=== PATIENT | female | born 1995 | race Hispanic/Latino ===

== ENCOUNTER 2017-10-29 18:55 | Emergency (ER) | payer MEDICAID ==
[~2017-10-29 18:55] MED LIST: GLYB5TAB8 PO; PREN-18 PO
[2017-10-29 19:59] LABS: APPEARANCE,URINE Cloudy (CLEAR); BILIRUBIN,URINE Negative (NEGATIVE); COLOR,URINE Yellow (YELLOW); GLUCOSE, URINE (UA) Negative (NEGATIVE); KETONES,URINE 15 mg/dL (NEGATIVE); LEUKOCYTE ESTERASE ,URINE Small (NEGATIVE); NITRATE,URINE Positive (NEGATIVE); OCCULT BLOOD,URINE Negative (NEGATIVE); PROTEIN,URINE Negative (NEGATIVE)
[2017-10-29 20:04] LABS: BACTERIA,URINE Many /HPF (None Seen); RBC,URINE None Seen /HPF (0-1)
== END 2017-10-29 21:08 | disposition home or self-care (01) ==
LOC: EDH 18:55
DX: O23.41 Unspecified infection of urinary tract in pregnancy, first trimester (principal); M54.5 Low back pain; Z3A.10 10 weeks gestation of pregnancy
CPT/HCPCS: 76801; 81001

== ENCOUNTER 2017-12-30 22:26 | Observation (INO) | payer MEDICAID ==
[~2017-12-30] VITALS: Ht 149.9 cm; Wt 69.4 kg
[2017-12-30] MEDS ORDERED: SODIUM CHLORIDE 0.9% 1000ML 1,000 ML IV ONE (22:57)
[2017-12-30 23:01] LABS: BASOPHILS % (AUTO) 0.6 % (0.0-5.0); EOSINOPHILS % (AUTO) 0.1 % (0.0-8.0); HEMATOCRIT 36.8 % (36-48); LYMPHOCYTES % (AUTO) 11.9 % (21.0-51.0); MEAN CORPUSCULAR HEMOGLOBIN 30.5 pg (27.0-33.0); MEAN CORPUSCULAR HGB CONC 34.2 g/dL (32.0-36.0); MEAN CORPUSCULAR VOLUME 89.4 fL (80-100); NEUTROPHILS % (AUTO) 80.4 % (40.0-77.0); PLATELET COUNT (AUTO) 312 K/uL (130-400); RED BLOOD CELL COUNT(AUTO) 4.11 MIL/uL (4.00-5.50); RED CELL DISTRIBUTION WIDTH 13.1 % (11.0-15.5); WHITE BLOOD COUNT (AUTO) 15.5 K/uL (4.8-10.8)
[2017-12-30 23:08] LABS: CARBON DIOXIDE 24 mmol/L (21-32); CHLORIDE 100 mmol/L (101-111); CREATININE 0.5 mg/dL (0.5-1.5); GLOMERULAR FILTR. RATE CALC 166 mL/min (>60); GLUCOSE,RANDOM 89 mg/dL (70-105); POTASSIUM 3.8 mmol/L (3.5-5.1); SODIUM SERUM 135 mmol/L (136-145); UREA NITROGEN, BLOOD 8 mg/dL (7-18)
[2017-12-30 23:10] LABS: APPEARANCE,URINE Cloudy (CLEAR); BILIRUBIN,URINE Negative (NEGATIVE); COLOR,URINE Yellow (YELLOW); GLUCOSE, URINE (UA) Negative (NEGATIVE); KETONES,URINE >=80 mg/dL (NEGATIVE); LEUKOCYTE ESTERASE ,URINE Moderate (NEGATIVE); NITRATE,URINE Negative (NEGATIVE); OCCULT BLOOD,URINE Negative (NEGATIVE); PH,URINE 7.5 (5.0-8.0); PROTEIN,URINE Negative (NEGATIVE)
[2017-12-30 23:11] LABS: INR 0.9 (0.85-1.15); PARTIAL THROMBOPLASTIN TIME 30.3 SEC (26.3-35.5); PROTHROMBIN TIME 9.5 SEC (9.6-11.6)
[2017-12-30 23:19] LABS: AMORPHOUS SEDIMENT,UR Few /LPF (None Seen); BACTERIA,URINE Moderate /HPF (None Seen); MUCUS,URINE Moderate LPF (None Seen); RBC,URINE 0-1 /HPF (0-1); SQUAMOUS EPITHELIAL CELL,UR Moderate /HPF (0-2)
[2017-12-30 23:22] LABS: ALANINE AMINOTRANSFERASE 42 U/L (12-78); ALBUMIN 3.2 g/dL (3.5-5.0); ASPARTATE AMINOTRANSFERASE 43 U/L (10-37); BILIRUBIN,TOTAL 0.4 mg/dL (0.2-1.0); CREATINE KINASE MB < 0.5 ng/mL (0.5-3.6); CREATINE KINASE, TOTAL 26 U/L (21-232); MYOGLOBIN 13 ng/mL (10-92); TOTAL PROTEIN, SERUM 7.5 g/dL (6.0-8.3); TROPONIN I < 0.04 ng/mL (0.00-0.06)
[2017-12-31] MEDS ORDERED: CEFTRIAXONE SODIUM 1 GM ONE (00:06)
[2017-12-31] MEDS ORDERED: ACETAMINOPHEN EXTRA STRENGTH 500 MG TABLET ONE (00:16)
[2017-12-31] MEDS ORDERED: SODIUM CHLORIDE 0.9% 1000ML 1,000 ML IV ONE (00:16)
[2017-12-31 05:07] LABS: BASOPHILS % (AUTO) 0.5 % (0.0-5.0); EOSINOPHILS % (AUTO) 0.3 % (0.0-8.0); MEAN CORPUSCULAR HGB CONC 34.8 g/dL (32.0-36.0); MEAN CORPUSCULAR VOLUME 88.9 fL (80-100); NEUTROPHILS % (AUTO) 71.2 % (40.0-77.0); PLATELET COUNT (AUTO) 249 K/uL (130-400); RED BLOOD CELL COUNT(AUTO) 3.37 MIL/uL (4.00-5.50); RED CELL DISTRIBUTION WIDTH 13.5 % (11.0-15.5); WHITE BLOOD COUNT (AUTO) 14.6 K/uL (4.8-10.8)
[2017-12-31] MEDS ORDERED: AMPICILLIN 2GM+NS 100ML 100 ML IV ONE (05:15)
[2017-12-31 05:17] LABS: ALBUMIN 2.4 g/dL (3.5-5.0); BILIRUBIN,TOTAL 0.3 mg/dL (0.2-1.0); CREATININE 0.6 mg/dL (0.5-1.5); POTASSIUM 3.3 mmol/L (3.5-5.1); TOTAL PROTEIN, SERUM 6.2 g/dL (6.0-8.3)
[2017-12-31] MEDS ORDERED: DEXTROSE 5 %-0.45 % NACL 1,000 ML IV SCH (06:30)
[2017-12-31] MEDS ORDERED: ACETAMINOPHEN 325 MG TAB PO PRN (07:00)
[2017-12-31] MEDS ORDERED: ONDANSETRON HCL 4 MG/2 ML VIAL IVP PRN (07:00)
[2017-12-31 07:55] VITALS: BP 102/62
[2017-12-31] MEDS ORDERED: CEFTRIAXONE SODIUM 1 GM IVP SCH (09:00)
[2017-12-31 11:20] VITALS: BP 95/59
[2017-12-31] MEDS ORDERED: AMPICILLIN 2GM+NS 100ML 100 ML IV SCH (12:00)
== END 2017-12-31 15:10 | disposition home or self-care (01) ==
LOC: EDH 22:26 → EDHIP 22:27 → UNDOADMOB 22:27 → EDHIP 12-31 02:52 → WSH 12-31 07:55
PROVIDERS: ADMIT Obstetrics & Gynecology; ATTEND Obstetrics & Gynecology
DX: O23.02 Infections of kidney in pregnancy, second trimester (principal); Z3A.19 19 weeks gestation of pregnancy
CPT/HCPCS: 36415 ×2; 80053 ×2; 81001; 82550; 82553; 83605; 83874; 84484; 85025 ×2; 85610; 85730; 87040 ×2; 87088; 87186; 93005; 96365; 96375; 99285; A4218; G0378 ×17; J0290 ×2; J0696; J7030 ×2

== ENCOUNTER 2018-04-27 11:44 | Observation (INO) | payer MEDICAID ==
[2018-04-27 12:56] LABS: APPEARANCE,URINE Clear (CLEAR); BILIRUBIN,URINE Negative (NEGATIVE); COLOR,URINE Yellow (YELLOW); GLUCOSE, URINE (UA) Negative (NEGATIVE); KETONES,URINE Trace mg/dL (NEGATIVE); LEUKOCYTE ESTERASE ,URINE Moderate (NEGATIVE); NITRATE,URINE Negative (NEGATIVE); OCCULT BLOOD,URINE Negative (NEGATIVE); PH,URINE 6.5 (5.0-8.0); PROTEIN,URINE Trace (NEGATIVE); UROBILINOGEN,URINE 0.2 mg/dL (0.2-1.0)
[2018-04-27 13:13] LABS: BACTERIA,URINE Moderate /HPF (None Seen); RBC,URINE 0-1 /HPF (0-1); SQUAMOUS EPITHELIAL CELL,UR Moderate /HPF (0-2)
[2018-04-27] MEDS ORDERED: TERBUTALINE SULFATE VIAL 1MG/ML SQ PRN (13:45)
== END 2018-04-27 15:23 | disposition home or self-care (01) ==
LOC: LDH 11:44
PROVIDERS: ADMIT Obstetrics & Gynecology; ATTEND Obstetrics & Gynecology
DX: O62.9 Abnormality of forces of labor, unspecified (principal); Z3A.35 35 weeks gestation of pregnancy; Z86.32 Personal history of gestational diabetes
CPT/HCPCS: 81001; G0378 ×5; J3105; J7120; 96360; 96361

== ENCOUNTER 2018-08-05 01:00 | Emergency (ER) | payer MEDICAID ==
[2018-08-05 01:28] LABS: BASOPHILS % (AUTO) 0.9 % (0.0-5.0); EOSINOPHILS % (AUTO) 1.1 % (0.0-8.0); HEMATOCRIT 41.8 % (36-48); LYMPHOCYTES % (AUTO) 38.2 % (21.0-51.0); MEAN CORPUSCULAR HGB CONC 32.4 g/dL (32.0-36.0); MEAN CORPUSCULAR VOLUME 86.5 fL (80-100); MONOCYTES % (AUTO) 6.2 % (3.0-13.0); NEUTROPHILS % (AUTO) 53.6 % (40.0-77.0); PLATELET COUNT (AUTO) 298 K/uL (130-400); RED BLOOD CELL COUNT(AUTO) 4.83 MIL/uL (4.00-5.50); RED CELL DISTRIBUTION WIDTH 15.2 % (11.0-15.5); WHITE BLOOD COUNT (AUTO) 13.9 K/uL (4.8-10.8)
[2018-08-05 01:29] LABS: APPEARANCE,URINE Cloudy (CLEAR); BILIRUBIN,URINE Small (NEGATIVE); GLUCOSE, URINE (UA) Negative (NEGATIVE); KETONES,URINE 15 mg/dL (NEGATIVE); LEUKOCYTE ESTERASE ,URINE Negative (NEGATIVE); NITRATE,URINE Negative (NEGATIVE); OCCULT BLOOD,URINE Negative (NEGATIVE); PROTEIN,URINE >=1000 (NEGATIVE)
[2018-08-05 01:31] LABS: COLOR,URINE Dark Yellow (YELLOW)
[2018-08-05 01:32] LABS: HCG,QUAL RESULT NEGATIVE (NEGATIVE)
[2018-08-05 01:34] LABS: CREATININE 0.9 mg/dL (0.5-1.5); POTASSIUM 3.9 mmol/L (3.5-5.1)
[2018-08-05 01:38] LABS: ALBUMIN 3.6 g/dL (3.5-5.0); BILIRUBIN,TOTAL 0.1 mg/dL (0.2-1.0); TOTAL PROTEIN, SERUM 8.1 g/dL (6.0-8.3)
[2018-08-05 01:39] LABS: RBC,URINE 0-1 /HPF (0-1); WBC,URINE 0-1 /HPF (0-1)
[2018-08-05 01:40] LABS: BACTERIA,URINE None Seen /HPF (None Seen); CALCIUM OXALATE CRYSTALS,UR Few /LPF (None Seen); MUCUS,URINE Few LPF (None Seen); SQUAMOUS EPITHELIAL CELL,UR Few /HPF (0-2)
[2018-08-05] MEDS ORDERED: HYOSCYAMINE SULFATE 0.125 MG TAB.SUBL SL ONE (01:56)
[2018-08-05] MEDS ORDERED: FAMOTIDINE/PF 20 MG/2 ML VIAL IV ONE (01:57)
== END 2018-08-05 03:34 | disposition home or self-care (01) ==
LOC: EDH 01:00
DX: K76.0 Fatty (change of) liver, not elsewhere classified (principal); E86.0 Dehydration; R10.13 Epigastric pain; R94.5 Abnormal results of liver function studies
CPT/HCPCS: 36415; 76705; 80053; 81001; 81025; 82150; 83690; 85025; 96361; 96374; 99284; J3490

== ENCOUNTER 2021-04-16 18:07 | Emergency (ER) | payer MEDICAID, OTHER ==
[~2021-04-16] VITALS: Ht 149.9 cm; Wt 77.1 kg
[2021-04-16] MEDS ORDERED: IBUP-2088 PO (20:31)
[2021-04-16] MEDS ORDERED: SUMA50TA PO (20:31)
[2021-04-16 20:46] VITALS: BP 136/87
== END 2021-04-16 20:46 | disposition home or self-care (01) ==
LOC: EDH 18:07
DX: G43.909 Migraine, unspecified, not intractable, without status migrainosus (principal); R07.89 Other chest pain; Z20.822 Contact with and (suspected) exposure to COVID-19
CPT/HCPCS: 71045; 87635; 93005; 99285; C9803

== ENCOUNTER 2021-11-19 03:08 | Emergency (ER) | payer OTHER ==
[~2021-11-19] VITALS: Ht 149.9 cm; Wt 84.4 kg
[~2021-11-19 03:08] MED LIST changes: +IBUP-2088 PO; +SUMA50TA PO
[2021-11-19 03:50] LABS: BASOPHILS % (AUTO) 0.3 % (0.0-5.0); EOSINOPHILS % (AUTO) 0.5 % (0.0-8.0); LYMPHOCYTES % (AUTO) 26.2 % (21.0-51.0); MEAN CORPUSCULAR HEMOGLOBIN 29.5 pg (27.0-33.0); MEAN CORPUSCULAR HGB CONC 33.3 g/dL (32.0-36.0); MEAN CORPUSCULAR VOLUME 88.4 fL (79-99); MONOCYTES % (AUTO) 9.5 % (3.0-13.0); NEUTROPHILS % (AUTO) 63.3 % (40.0-77.0); PLATELET COUNT (AUTO) 228 K/uL (130-400); RED BLOOD CELL COUNT(AUTO) 4.75 MIL/uL (4.00-5.50); RED CELL DISTRIBUTION WIDTH 12.9 % (11.0-15.5); WHITE BLOOD COUNT (AUTO) 6.2 K/uL (4.8-10.8)
[2021-11-19 03:58] LABS: CREATININE 0.9 mg/dL (0.5-1.5); POTASSIUM 3.3 mmol/L (3.5-5.1)
[2021-11-19 04:03] LABS: ALBUMIN 3.5 g/dL (3.5-5.0); BILIRUBIN,TOTAL 0.3 mg/dL (0.2-1.0); TOTAL PROTEIN, SERUM 7.9 g/dL (6.0-8.3)
[2021-11-19 04:24] LABS: APPEARANCE,URINE Cloudy (CLEAR); BILIRUBIN,URINE Negative (NEGATIVE); COLOR,URINE Yellow (YELLOW); GLUCOSE, URINE (UA) Negative (NEGATIVE); KETONES,URINE Trace mg/dL (NEGATIVE); LEUKOCYTE ESTERASE ,URINE Trace (NEGATIVE); NITRATE,URINE Positive (NEGATIVE); OCCULT BLOOD,URINE Small (NEGATIVE); PROTEIN,URINE POS 2+ mg/dL (NEGATIVE)
[2021-11-19] MEDS ORDERED: POTASSIUM BICARB/CIT AC 25 MEQ TABLET.EFF PO ONE (04:30)
[2021-11-19] MEDS ORDERED: IBUPROFEN 600 MG TABLET PO ONE (04:30)
[2021-11-19] MEDS ORDERED: 0.9%NACL 1000ML 1,000 ML IV ONE (04:30)
[2021-11-19] MEDS ORDERED: OSELTAMIVIR PHOSPHATE 75 MG CAP PO ONE (04:30)
[2021-11-19 04:32] LABS: HCG,QUAL RESULT NEGATIVE (NEGATIVE)
[2021-11-19 04:43] LABS: BACTERIA,URINE Many /HPF (None Seen); RBC,URINE 0-1 /HPF (0-1); SQUAMOUS EPITHELIAL CELL,UR Moderate /HPF (0-2)
[2021-11-19 05:20] VITALS: BP 125/73
[2021-11-19] MEDS ORDERED: OSEL75 PO (05:23)
[2021-11-19] MEDS ORDERED: AMOX500C2 PO (05:23)
[2021-11-19] MEDS ORDERED: AMOXICILLIN 500 MG CAPSULE PO ONE (05:30)
== END 2021-11-19 05:45 | disposition home or self-care (01) ==
LOC: EDH 03:08
DX: J10.1 Influenza due to other identified influenza virus with other respiratory manifestations (principal); H66.92 Otitis media, unspecified, left ear; R50.9 Fever, unspecified; E86.0 Dehydration; R73.9 Hyperglycemia, unspecified; R31.9 Hematuria, unspecified; Z79.899 Other long term (current) drug therapy
CPT/HCPCS: 36415; 80053; 81001; 81025; 83605; 85025; 87077; 87088; 87186; 87804 ×2; 87880; 96360; 99284; J7030

== ENCOUNTER 2023-10-26 18:02 | Emergency (ER) | payer OTHER ==
[~2023-10-26] VITALS: Ht 149.9 cm; Wt 81.6 kg
[~2023-10-26 18:02] MED LIST changes: +AMOX500C2 PO; +OSEL75 PO
[2023-10-26] MEDS: ONDANSETRON 4MG INJ IVP ONE (18:39)
[2023-10-26] MEDS: LIDOCAINE HCL 2% VISCOUS 15 ML UDCUP PO ONE (18:39)
[2023-10-26] MEDS: DICYCLOMINE HCL 10 MG/5 ML ML PO ONE (18:39)
[2023-10-26] MEDS: MAG/ALUM/SIMETH 30 ML UDCUP PO ONE (18:39)
[2023-10-26 18:43] LABS: BASOPHILS # (AUTO) 0.05 K/uL (0.00-0.20); BASOPHILS % (AUTO) 0.5 % (0.0-5.0); EOSINOPHILS # (AUTO) 0.03 K/uL (0.00-0.70); EOSINOPHILS % (AUTO) 0.3 % (0.0-8.0); HEMATOCRIT 39.3 % (36-48); IMMATURE GRANULOCYTE ABSOLUTE 0.03 K/uL (0-1); LYMPHOCYTES # (AUTO) 2.6 K/uL (1.0-4.8); LYMPHOCYTES % (AUTO) 26.2 % (21.0-51.0); MEAN CORPUSCULAR HEMOGLOBIN 29.7 pg (27.0-33.0); MEAN CORPUSCULAR HGB CONC 35.1 g/dL (32.0-36.0); MEAN CORPUSCULAR VOLUME 84.7 fL (79-99); MONOCYTES # (AUTO) 0.7 K/uL (0.1-1.0); MONOCYTES % (AUTO) 7.6 % (3.0-13.0); NEUTROPHILS # (AUTO) 6.3 K/uL (1.8-7.7); NEUTROPHILS % (AUTO) 65.1 % (40.0-77.0); PLATELET COUNT (AUTO) 276 K/uL (130-400); RED BLOOD CELL COUNT(AUTO) 4.64 MIL/uL (4.00-5.50); RED CELL DISTRIBUTION WIDTH 12.2 % (11.0-15.5); WHITE BLOOD COUNT (AUTO) 9.7 K/uL (4.8-10.8)
[2023-10-26 18:51] LABS: CREATININE 0.8 mg/dL (0.5-1.0); MAGNESIUM 1.7 mg/dL (1.80-2.40); POTASSIUM 3.8 mmol/L (3.5-5.1)
[2023-10-26] MEDS: 0.9%NACL 1000ML 1,000 ML IV ONE (19:58)
[2023-10-26] MEDS ORDERED: METF-444 PO (20:18)
[2023-10-26] MEDS ORDERED: FAMO-136 PO (20:18)
[2023-10-26 21:24] VITALS: BP 112/72; PULSE 96; RESP 17; O2SAT 97
[2023-10-26] MEDS: FAMOTIDINE 20MG VIAL IV ONE (21:29)
[2023-10-26] MEDS: KETOROLAC 30MG VIAL (30MG/ML) IVP ONE (21:29)
[2023-10-26 23:26] LABS: APPEARANCE,URINE CLEAR (CLEAR); BILIRUBIN,URINE NEGATIVE (NEGATIVE); COLOR,URINE LIGHT-YELLOW (YELLOW); GLUCOSE, URINE (UA) >=1000 mg/dL (NEGATIVE); KETONES,URINE NEGATIVE (NEGATIVE); LEUKOCYTE ESTERASE ,URINE NEGATIVE Leu/uL (NEGATIVE); NITRATE,URINE NEGATIVE (NEGATIVE); OCCULT BLOOD,URINE MODERATE (NEGATIVE); PROTEIN,URINE 50 mg/dL (NEGATIVE); UROBILINOGEN,URINE 0.2 mg/dL (0.2-1.0)
[2023-10-26 23:27] LABS: ADD UA MICROSCOPIC YES
[2023-10-26 23:28] LABS: MUCUS,URINE RARE LPF (None Seen); SQUAMOUS EPITHELIAL CELL,UR FEW /HPF (0-2)
== END 2023-10-26 21:42 | disposition home or self-care (01) ==
LOC: EDH 18:02
DX: R10.13 Epigastric pain (principal); K64.9 Unspecified hemorrhoids; E11.9 Type 2 diabetes mellitus without complications; Z79.899 Other long term (current) drug therapy
CPT/HCPCS: 99285; 96374; 76705; 96375; 82270; 83735; 80048; 83690; 85025; 81001; 81025; 36415; J3490; J7030; J2405; J1885

== ENCOUNTER 2023-12-24 12:36 | Emergency (ER) | payer OTHER ==
[~2023-12-24] VITALS: Ht 149.9 cm; Wt 83.0 kg
[~2023-12-24 12:36] MED LIST changes: +FAMO-136 PO; +METF-444 PO
[2023-12-24 12:43] VITALS: BP 128/90; PULSE 75; RESP 16
[2023-12-24] MEDS ORDERED: MELO5CAP3 PO (14:02)
[2023-12-24] MEDS: KETOROLAC 15MG/ML VIAL (15MG/ML) IM STA (14:03)
== END 2023-12-24 14:21 | disposition home or self-care (01) ==
LOC: EDH 12:36
DX: M75.01 Adhesive capsulitis of right shoulder (principal); E11.9 Type 2 diabetes mellitus without complications; Z79.899 Other long term (current) drug therapy
CPT/HCPCS: 99284; 82948; 73030; 96372; J1885